=== PATIENT | female | born 1945 | race Caucasian/White ===

== ENCOUNTER 2017-07-06 10:54 | Emergency (ER) | payer MEDICARE ==
[~2017-07-06] VITALS: Ht 165.1 cm; Wt 83.2 kg
[~2017-07-06 10:54] MED LIST: CHERSOL PO; HYDR-2768 PO; KCL20 PO; LEVO.1 PO; PENI500T PO; ROSU5 PO
[2017-07-06 11:04] VITALS: BP 121/66; PULSE 100; RESP 16; TEMP 98.2; O2SAT 97
[2017-07-06] MEDS ORDERED: HYDR25TA5 PO (11:16)
[2017-07-06] MEDS ORDERED: ROSU5 PO (11:16)
[2017-07-06] MEDS ORDERED: LEVO88TA2 PO (11:16)
--- NOTE | 2017-07-06 11:30 | PD ---
HPI Chief Complaint: GI Complaint Time Seen by Provider: 11:13 Travel History International Travel<30 days: No Contact w/Intl Traveler<30days: No Traveled to known affect area: No History of Present Illness HPI 72yo F was sent in by Dr. Ortega for CT scan of abd/pelvis. Pt had colonoscopy 4 days ago and has been having lower abdominal pain since then. Said she does not feel much pain when she is just lying there but worst with movement. It was across lower abdomen but now more suprapubic. Has not had a bowel movement. +Flatus. Denies any fever, chest pain, sob, n/v, dysuria, hematuria, focal weakness or numbness. PFSH Past Medical History High Cholesterol: Yes Hypertension: Yes Immunizations Current: Yes Thyroid Disease: Yes Menopausal: Yes Past Surgical History Appendectomy: Yes Gynecologic Surgery: Yes Social History Alcohol Use: No Tobacco Use: No (E-CIGS) Substance Use: No Allergies-Medications (Allergen,Severity, Reaction): Coded Allergies: No Known Allergies (Unverified Adverse Reaction, Unknown, 07/06/17) Reported Meds & Prescriptions Reported Meds & Active Scripts Active Macrobid (Nitrofurantoin Monoh/Nitrofur Macro) 100 Mg Cap 100 Mg PO BID 5 Days Tylenol (Acetaminophen) 325 Mg Tab 325 Mg PO Q4H PRN Reported Crestor (Rosuvastatin Calcium) 5 Mg Tab 5 Mg PO EVERY OTHER DAY Hydrochlorothiazide 25 Mg Tab 25 Mg PO DAILY Levothyroxine (Levothyroxine Sodium) 88 Mcg Tab 88 Mcg PO DAILY Review of Systems Except as stated in HPI: all other systems reviewed are Neg Physical Exam Narrative GENERAL: 72yo F in mild distress. SKIN: Focused skin assessment warm/dry. HEAD: Atraumatic. Normocephalic. EYES: Pupils equal and round. No scleral icterus. No injection or drainage. CARDIOVASCULAR: Regular rate and rhythm. No murmur appreciated. RESPIRATORY: No accessory muscle use. Clear to auscultation. Breath sounds equal bilaterally. GASTROINTESTINAL: Abdomen soft, mild tenderness suprapubic region. No rebound tenderness or guarding. MUSCULOSKELETAL: No obvious deformities. No clubbing. No cyanosis. No edema. NEUROLOGICAL: Awake and alert. No obvious cranial nerve deficits. Motor grossly within normal limits. Normal speech. PSYCHIATRIC: Appropriate mood and affect; insight and judgment normal. Data Data Last Documented VS Vital Signs Date Time Temp Pulse Resp B/P (MAP) Pulse Ox O2 Delivery O2 Flow Rate FiO2 07/06/17 12:40 85 16 139/75 (96) 99 Room Air 07/06/17 11:04 98.2 Orders Orders Complete Blood Count With Diff (07/06/17 11:24) Comprehensive Metabolic Panel (07/06/17 11:24) Lipase (07/06/17 11:24) Prothrombin Time / Inr (Pt) (07/06/17 11:24) Act Partial Throm Time (Ptt) (07/06/17 11:24) Urinalysis - C+S If Indicated (07/06/17 11:24) Ct Abd/Pel W Iv Contrast(Rout) (07/06/17 11:24) Urine Culture (07/06/17 11:38) Potassium Chloride (Kcl) (07/06/17 12:30) Iohexol 350 Inj (Omnipaque 350 Inj) (07/06/17 12:29) Ed Discharge Order (07/06/17 13:06) Labs Laboratory Tests Test 07/06/17 11:35 07/06/17 11:38 White Blood Count 10.0 TH/MM3 Red Blood Count 4.58 MIL/MM3 Hemoglobin 12.8 GM/DL Hematocrit 38.8 % Mean Corpuscular Volume 84.7 FL Mean Corpuscular Hemoglobin 27.8 PG Mean Corpuscular Hemoglobin Concent 32.8 % Red Cell Distribution Width 12.6 % Platelet Count 347 TH/MM3 Mean Platelet Volume 8.8 FL Neutrophils (%) (Auto) 86.9 % Lymphocytes (%) (Auto) 7.6 % Monocytes (%) (Auto) 4.0 % Eosinophils (%) (Auto) 1.3 % Basophils (%) (Auto) 0.2 % Neutrophils # (Auto) 8.7 TH/MM3 Lymphocytes # (Auto) 0.8 TH/MM3 Monocytes # (Auto) 0.4 TH/MM3 Eosinophils # (Auto) 0.1 TH/MM3 Basophils # (Auto) 0.0 TH/MM3 CBC Comment DIFF FINAL Differential Comment Prothrombin Time 11.2 SEC Prothromb Time International Ratio 1.1 RATIO Activated Partial Thromboplast Time 30.5 SEC Blood Urea Nitrogen 15 MG/DL Creatinine 0.84 MG/DL Random Glucose 118 MG/DL Total Protein 7.0 GM/DL Albumin 2.7 GM/DL Calcium Level 9.2 MG/DL Alkaline Phosphatase 110 U/L Aspartate Amino Transf (AST/SGOT) 15 U/L Alanine Aminotransferase (ALT/SGPT) 20 U/L Total Bilirubin 0.5 MG/DL Sodium Level 136 MEQ/L Potassium Level 2.8 MEQ/L Chloride Level 95 MEQ/L Carbon Dioxide Level 31.9 MEQ/L Anion Gap 9 MEQ/L Estimat Glomerular Filtration Rate 67 ML/MIN Lipase 186 U/L Urine Collection Type CLEAN CATCH Urine Color YELLOW Urine Turbidity CLEAR Urine pH 7.0 Urine Specific [place] 1.020 Urine Protein TRACE mg/dL Urine Glucose (UA) NEG mg/dL Urine Ketones NEG mg/dL Urine Occult Blood LARGE Urine Nitrite NEG Urine Bilirubin NEG Urine Leukocyte Esterase TRACE Urine RBC 4-9 /hpf Urine WBC 3-5 /hpf Urine Squamous Epithelial Cells 6-8 /hpf Urine Bacteria MANY /hpf Urine Hyaline Casts 0-2 /lpf Urine Mucus MOD /lpf Urine Yeast (Budding) MOD Microscopic Urinalysis Comment CULTURE INDICATED MDM Medical Decision Making Medical Screen Exam Complete: Yes Emergency Medical Condition: Yes Differential Diagnosis Cystitis vs. colitis vs. perforation (low suspicion) Narrative Course 72yo F sent here by GI physician for CT scan after having persistent lower abdominal pain after colonoscopy 4 days ago. Pt is well appearing and abdominal exam is positive for mild tenderness in suprapubic region. No rebound tenderness or guarding. Labs reviewed, no leukocytosis. Hypokalemia at 2.8, replaced orally with 60mEq KCl. Lipase normal. UA showed trace leukocyte. +Squamous. Many urine bacteria. Moderate yeast. Culture indicated. Pt has no vaginal discharge or itching. No urinary complaints but suprapubic tenderness on exam. Although it may be contamination, will cover with antibiotics. CT a/p showed small amount of free fluid in presacral region. No evidence of intraperitoneal gas. Hiatus hernia containing a portion of the gastric fundus. Pt reevaluated at bedside and has no abdominal pain on exam. Pt is nontoxic appearing and tolerating PO. Discussed with Dr. Pruitt who is covering Dr. Ortega to inform him of the CT scan results. Return precautions given. Diagnosis Primary Impression: Abdominal pain Qualified Codes: R10.30 - Lower abdominal pain, unspecified Patient Instructions: General Instructions Departure Forms: Tests/Procedures Additional Instructions: Please follow up with Dr. Ortega or primary care physician as an outpatient. Return to the ED if symptoms worsen. Med/Other Pt SpecificInfo: Prescription(s) given Scripts Nitrofurantoin Monohydrate Macrocrystals (Macrobid) 100 Mg Cap 100 MG PO BID for Infection for 5 Days, #10 CAP 0 Refills Prov: Madeleine Cabello DO 07/06/17 Acetaminophen (Tylenol) 325 Mg Tab 325 MG PO Q4H Y for PAIN SCALE 1 TO 3, #15 TAB 0 Refills Prov: Madeleine Cabelol DO 07/06/17 Disposition: 01 DISCHARGE HOME Condition: Stable Madeleine Cabello DO Jul 06, 2017 11:30
[2017-07-06 11:45] LABS: BLOOD, URINE LARGE (NEG); GLUCOSE,URINE NEG (NEG); KETONE, URINE NEG (NEG); NITRITE,URINE NEG (NEG)
[2017-07-06 11:46] LABS: AUTOMATED NEUTROPHIL # 8.7 TH/MM3 (1.8-7.7); BASOPHIL % 0.2 % (0.0-2.0); EOSINOPHIL # 0.1 TH/MM3 (0-0.4); EOSINOPHIL % 1.3 % (0.0-4.0); HEMATOCRIT 38.8 % (35.0-46.0); HEMO FLAGS DIFF FINAL; LYMPH % 7.6 % (9.0-44.0); LYMPHOCYTE # 0.8 TH/MM3 (1.0-4.8); MEAN CELL VOLUME 84.7 FL (80.0-100.0); MEAN CORPUSCULAR HEMOGLOBIN 27.8 PG (27.0-34.0); MEAN CORPUSCULAR HGB CONC 32.8 % (32.0-36.0); NEUT % 86.9 % (16.0-70.0); PLATELET COUNT 347 TH/MM3 (150-450); RED BLOOD COUNT 4.58 MIL/MM3 (4.00-5.30); RED CELL DISTRIBUTION WIDTH 12.6 % (11.6-17.2)
[2017-07-06 11:54] LABS: HYALINE CAST, URINE 0-2 /lpf (RARE); METHOD OF COLLECTION CLEAN CATCH; URINE COLOR YELLOW (YELLW/STRAW)
[2017-07-06 11:55] LABS: BACTERIA, URINE MANY /hpf; COMMENT (UR) CULTURE INDICATED; CULTURE IF INDICATED CULTURE INDICATED
[2017-07-06 11:56] LABS: MUCUS URINE MOD /lpf (OCC)
[2017-07-06 12:00] LABS: APTT (PATIENT) 30.5 SEC (24.3-30.1); INTERNATIONAL NORMALIZED RATIO 1.1 RATIO; PROTHROMBIN TIME - PATIENT 11.2 SEC (9.8-11.6)
[2017-07-06 12:08] LABS: ALKALINE PHOSPHATASE 110 U/L (45-117); ALT (GPT) 20 U/L (10-53); ANION GAP 9 MEQ/L (5-15); AST (GOT) 15 U/L (15-37); BICARBONATE 31.9 MEQ/L (21.0-32.0); BLOOD UREA NITROGEN 15 MG/DL (7-18); CHLORIDE 95 MEQ/L (98-107); GLOMERULAR FILTRATION RATE 67 ML/MIN (>89); SODIUM (NA) 136 MEQ/L (136-145); TOTAL BILIRUBIN ADULT 0.5 MG/DL (0.2-1.0)
[2017-07-06 12:10] LABS: POTASSIUM 2.8 MEQ/L (3.5-5.1)
[2017-07-06] MEDS ORDERED: IOHEXOL 350 MG/ML 10 ML VIAL (for RAD DIAG) IVCONTRAST ONE (12:29)
[2017-07-06] MEDS ORDERED: POTASSIUM CHLORIDE 20 MEQ CONTROLLED RELEASE TAB PO ONE (12:30)
[2017-07-06 12:40] VITALS: BP 139/75; PULSE 85; RESP 16; O2SAT 99
--- NOTE | 2017-07-06 12:41 | RADRPT ---
EXAM DATE/TIME: 07/06/2017 12:23 [facility] COMPARISON: No previous studies available for comparison. INDICATIONS : Lower abdominal pain since colonscopy four days ago. IV CONTRAST: 95 cc Omnipaque 350 (iohexol) IV ORAL CONTRAST: No oral contrast ingested. RADIATION DOSE: 15.53 CTDIvol (mGy) MEDICAL HISTORY : Hypercholesterolemia. Hypertension. SURGICAL HISTORY : Appendectomy. ENCOUNTER: Initial ACUITY: 4 - 6 days PAIN SCALE: 7/10 LOCATION: Bilateral lower quadrant TECHNIQUE: Volumetric scanning of the abdomen and pelvis was performed. Using automated exposure control and ad justment of the mA and/or kV according to patient size, radiation dose was kept as low as reasonably achievable to obtain optimal diagnostic quality images. DICOM format image data is available electro nically for review and comparison. FINDINGS: LOWER LUNGS: The visualized lower lungs are clear. 4.8 cm hiatus hernia containing portion of the fundus of the st omach. LIVER: Homogeneous density without lesion. There is no dilation of the biliary tree. No calcified gallston es. SPLEEN: Normal size without lesion. PANCREAS: Within normal limits. KIDNEYS: Normal in size and shape. There is no mass, stone or hydronephrosis. ADRENAL GLANDS: Within normal limits. VASCULAR: There is no aortic aneurysm. BOWEL/MESENTERY: No dilated loops of small or large bowel. ABDOMINAL WALL: Fat-containing umbilical hernia. RETROPERITONEUM: There is no lymphadenopathy. There is some mild free fluid in the presacral region measuring up to 8 mm in size, best seen on image #72. No evidence of free intraperitoneal gas. BLADDER: No wall thickening or mass. REPRODUCTIVE: Within normal limits. INGUINAL: There is no lymphadenopathy or hernia. MUSCULOSKELETAL: Within normal limits for patient age. CONCLUSION: 1. Small amount of free fluid in the presacral region. 2. No evidence of free intraperitoneal gas. 3. Hiatus hernia containing a portion of the gastric fundus. Ac Almodovar MD on July 06, 2017 at 12:36 Board Certified Radiologist. This report was verified electronically.
[2017-07-06] MEDS ORDERED: TYLE325T PO (13:03)
[2017-07-06] MEDS ORDERED: MACR100C2 PO (13:03)
== END 2017-07-06 13:18 | disposition home or self-care (01) ==
LOC: PHED 10:54
DX: R10.30 Lower abdominal pain, unspecified (principal); E78.00 Pure hypercholesterolemia, unspecified; E07.9 Disorder of thyroid, unspecified
CPT/HCPCS: 74177; 80053; 81001; 83690; 85025; 85610; 85730; 87086; 99285; Q9967

== ENCOUNTER 2017-09-06 18:06 | Emergency (ER) | payer MEDICARE ==
[~2017-09-06] VITALS: Ht 165.1 cm; Wt 80.0 kg
[~2017-09-06 18:06] MED LIST changes: -CHERSOL PO; -HYDR-2768 PO; +HYDR25TA5 PO; -KCL20 PO; -LEVO.1 PO; +LEVO88TA2 PO; +MACR100C2 PO; -PENI500T PO; +TYLE325T PO
[2017-09-06 18:24] VITALS: BP 164/88; PULSE 106; RESP 16; TEMP 98.5; O2SAT 96
[2017-09-06] MEDS ORDERED: ASPI81CH6 CHEW (19:19)
[2017-09-06] MEDS ORDERED: SODIUM CHLORIDE 0.9% FLUSH 10 ML FLUSH IV FLUSH PRN (19:30)
[2017-09-06] MEDS ORDERED: FAMOTIDINE 20 MG/2 ML VIAL IV PUSH ONE (19:30)
--- NOTE | 2017-09-06 19:32 | PD ---
HPI Chief Complaint: GI Complaint Time Seen by Provider: 19:10 Travel History International Travel<30 days: No Contact w/Intl Traveler<30days: No Traveled to known affect area: No History of Present Illness HPI 72-year-old female complains of abdominal pain and black tarry stool. Patient states that she had colonoscopy done about 2 months ago. Patient states that she was told that she has diverticulosis and polyps and internal and external hemorrhoids. Patient states that she started having abdominal cramping discomfort intermittently since then. Patient patient states that she was seen in emergency room about 3 days after colonoscopy for abdominal pain. Patient states that she had blood tests and CT scan of the abdomen pelvis done at that time. Patient was advised to follow with her doctor. Patient states that she has not seen a physician since then. Patient states that she noticed black tarry stool 2 days last week. Patient states that she has been constipated recently. Patient take aspirin 81 mg daily. Patient denies any nausea vomiting diarrhea. Patient states that the abdominal pain has been intermittent and usually happens in the afternoon and evening. Patient denies any fever chills. Patient denies any back pain. Patient denies any recent weight loss. No family history of colon cancer. 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 [facility] Past Medical History High Cholesterol: Yes Hypertension: Yes Immunizations Current: Yes Thyroid Disease: Yes Menopausal: Yes Past Surgical History Appendectomy: Yes Gynecologic Surgery: Yes Social History Alcohol Use: No Tobacco Use: No (E-CIGS) Substance Use: No Allergies-Medications (Allergen,Severity, Reaction): Coded Allergies: No Known Allergies (Unverified Adverse Reaction, Unknown, 09/06/17) Reported Meds & Prescriptions Reported Meds & Active Scripts Active Reported Aspirin Low Dose (Aspirin) 81 Mg Chew 81 Mg CHEW DAILY Crestor (Rosuvastatin Calcium) 5 Mg Tab 5 Mg PO EVERY OTHER DAY Hydrochlorothiazide 25 Mg Tab 25 Mg PO DAILY Levothyroxine (Levothyroxine Sodium) 88 Mcg Tab 88 Mcg PO DAILY Review of Systems General / Constitutional: No: Fever Eyes: No: Visual changes HENT: No: Headaches Cardiovascular: No: Chest Pain or Discomfort Respiratory: No: Shortness of Breath Gastrointestinal: Positive: Abdominal Pain, Hematochezia, Constipation Genitourinary: No: Dysuria Musculoskeletal: No: Pain Skin: No Rash Neurologic: No: Weakness Psychiatric: No: Depression Endocrine: No: Polydipsia Hematologic/Lymphatic: No: Easy Bruising Physical Exam Narrative GENERAL: Well-nourished, well-developed patient. SKIN: Focused skin assessment warm/dry. HEAD: Normocephalic. EYES: No scleral icterus. No injection or drainage. NECK: Supple, trachea midline. No JVD or lymphadenopathy. CARDIOVASCULAR: Regular rate and rhythm without murmurs, gallops, or rubs. RESPIRATORY: Breath sounds equal bilaterally. No accessory muscle use. GASTROINTESTINAL: Abdomen soft, non-tender, nondistended. Rectal exam Hemoccult negative. MUSCULOSKELETAL: No cyanosis, or edema. BACK: Nontender without obvious deformity. No CVA tenderness. Neurologic exam normal. Data Data Last Documented VS Vital Signs Date Time Temp Pulse Resp B/P (MAP) Pulse Ox O2 Delivery O2 Flow Rate FiO2 09/06/17 20:35 86 16 177/80 (112) 99 Room Air 09/06/17 18:24 98.5 Orders Orders Complete Blood Count With Diff (09/06/17 19:23) Comprehensive Metabolic Panel (09/06/17 19:23) Lipase (09/06/17 19:23) Prothrombin Time / Inr (Pt) (09/06/17 19:23) Act Partial Throm Time (Ptt) (09/06/17 19:23) Urinalysis - C+S If Indicated (09/06/17 19:23) Ct Abd/Pel W Iv Contrast(Rout) (09/06/17 19:23) Iv Access Insert/Monitor (09/06/17 19:23) Ecg Monitoring (09/06/17 19:23) Oximetry (09/06/17 19:23) Sodium Chloride 0.9% Flush (Ns Flush) (09/06/17 19:30) Famotidine Inj (Pepcid Inj) (09/06/17 19:30) Urine Culture (09/06/17 19:35) Iohexol 350 Inj (Omnipaque 350 Inj) (09/06/17 20:25) Labs Laboratory Tests Test 09/06/17 19:30 09/06/17 19:35 White Blood Count 11.4 TH/MM3 Red Blood Count 4.56 MIL/MM3 Hemoglobin 12.6 GM/DL Hematocrit 38.0 % Mean Corpuscular Volume 83.3 FL Mean Corpuscular Hemoglobin 27.5 PG Mean Corpuscular Hemoglobin Concent 33.1 % Red Cell Distribution Width 13.4 % Platelet Count 331 TH/MM3 Mean Platelet Volume 8.6 FL Neutrophils (%) (Auto) 86.3 % Lymphocytes (%) (Auto) 7.2 % Monocytes (%) (Auto) 4.2 % Eosinophils (%) (Auto) 1.3 % Basophils (%) (Auto) 1.0 % Neutrophils # (Auto) 9.9 TH/MM3 Lymphocytes # (Auto) 0.8 TH/MM3 Monocytes # (Auto) 0.5 TH/MM3 Eosinophils # (Auto) 0.1 TH/MM3 Basophils # (Auto) 0.1 TH/MM3 CBC Comment DIFF FINAL Differential Comment Prothrombin Time 10.7 SEC Prothromb Time International Ratio 1.1 RATIO Activated Partial Thromboplast Time 28.0 SEC Blood Urea Nitrogen 18 MG/DL Creatinine 1.20 MG/DL Random Glucose 109 MG/DL Total Protein 7.4 GM/DL Albumin 3.0 GM/DL Calcium Level 9.5 MG/DL Alkaline Phosphatase 116 U/L Aspartate Amino Transf (AST/SGOT) 16 U/L Alanine Aminotransferase (ALT/SGPT) 18 U/L Total Bilirubin 0.3 MG/DL Sodium Level 133 MEQ/L Potassium Level 3.0 MEQ/L Chloride Level 93 MEQ/L Carbon Dioxide Level 32.6 MEQ/L Anion Gap 7 MEQ/L Estimat Glomerular Filtration Rate 44 ML/MIN Lipase 152 U/L Urine Color YELLOW Urine Turbidity CLEAR Urine pH 6.0 Urine Specific [place] 1.015 Urine Protein 100 mg/dL Urine Glucose (UA) NEG mg/dL Urine Ketones NEG mg/dL Urine Occult Blood MOD Urine Nitrite NEG Urine Bilirubin NEG Urine Leukocyte Esterase SMALL Urine RBC 0-3 /hpf Urine WBC 15-19 /hpf Urine WBC Clumps FEW Urine Squamous Epithelial Cells 0-5 /hpf Urine Amorphous Sediment FEW Urine Bacteria FEW /hpf Microscopic Urinalysis Comment CULTURE INDICATED MDM Medical Decision Making Medical Screen Exam Complete: Yes Emergency Medical Condition: Yes Interpretation(s) Last Impressions Abdomen/Pelvis CT 09/06/[id number] Signed Impressions: Service Date/Time: Wednesday, September 06, 2017 20:13 - CONCLUSION: 1. Moderate hiatal hernia the GE junction. Unchanged compared to the prior study. 2. A few small benign right renal cyst. 3. No acute pathology. No new or significant changes compared to the prior study. John Briggs MD 21:14 PM. CBC WBC 11.4. Hemoglobin 12.6 hematocrit 30.0. 86 neutrophil. Sodium 133. Potassium 3.0. Chloride 93. Bicarbonate 32.6. Creatinine 1.20. GFR 44. UA positive WBC and bacteria. Differential Diagnosis Differential diagnosis including gastritis, PUD, pancreatitis, cholecystitis, colitis, UTI, pyelonephritis, nephrolithiasis, GI bleed. Narrative Course 72-year-old female with intermittent abdominal cramping and history of black tarry stool for 2 days last week. Bactrim DS, one tablet by mouth given. KCl 40 mEq by mouth given. Diagnosis Primary Impression: Abdominal pain Qualified Codes: R10.9 - Unspecified abdominal pain Additional Impressions: Hypokalemia UTI (urinary tract infection) Qualified Codes: N30.00 - Acute cystitis without hematuria Patient Instructions: General Instructions Additional Instructions: Take medications as directed. Follow-up with shop router. Return if worse. Follow-up with personal physician. Med/Other Pt SpecificInfo: Prescription(s) given Scripts Potassium Chloride ER (Potassium Chloride ER) 10 Meq Cap 10 MEQ PO DAILY for Electrolyte Replacement, #7 CAP 0 Refills Prov: Faizan Gregory MD 09/06/17 Pantoprazole (Protonix) 40 Mg Tab 40 MG PO DAILY for Reflux, #30 TAB 0 Refills Prov: Faizan Gregory MD 09/06/17 Sulfamethoxazole-Trimethoprim (Bactrim DS) 800-160 Mg Tab 1 TAB PO BID for Infection, #14 TAB 0 Refills Prov: Faizan Gregory MD 09/06/17 Disposition: 01 DISCHARGE HOME Condition: Stable Faizan Gregory MD Sep 06, 2017 19:32
[2017-09-06 19:43] LABS: AUTOMATED NEUTROPHIL # 9.9 TH/MM3 (1.8-7.7); BASOPHIL # 0.1 TH/MM3 (0-0.2); EOSINOPHIL # 0.1 TH/MM3 (0-0.4); EOSINOPHIL % 1.3 % (0.0-4.0); HEMOGLOBIN 12.6 GM/DL (11.6-15.3); LYMPH % 7.2 % (9.0-44.0); LYMPHOCYTE # 0.8 TH/MM3 (1.0-4.8); MEAN CELL VOLUME 83.3 FL (80.0-100.0); MEAN CORPUSCULAR HEMOGLOBIN 27.5 PG (27.0-34.0); MEAN CORPUSCULAR HGB CONC 33.1 % (32.0-36.0); MEAN PLATELET VOLUME 8.6 FL (7.0-11.0); MONO % 4.2 % (0.0-8.0); MONOCYTE # 0.5 TH/MM3 (0-0.9); NEUT % 86.3 % (16.0-70.0); PLATELET COUNT 331 TH/MM3 (150-450); RED BLOOD COUNT 4.56 MIL/MM3 (4.00-5.30); RED CELL DISTRIBUTION WIDTH 13.4 % (11.6-17.2); WHITE BLOOD COUNT 11.4 TH/MM3 (4.0-11.0)
[2017-09-06 19:44] LABS: BILIRUBIN, URINE NEG (NEG); BLOOD, URINE MOD (NEG); GLUCOSE,URINE NEG (NEG); KETONE, URINE NEG (NEG); NITRITE,URINE NEG (NEG); URINE LEUKOCYTE ESTERASE SMALL (NEG)
[2017-09-06 19:48] LABS: URINE COLOR YELLOW (YELLW/STRAW)
[2017-09-06 19:50] LABS: AMORPHOUS SEDIMENT, URINE FEW; BACTERIA, URINE FEW /hpf; RBC, URINE 0-3 /hpf (0-3); SQUAMOUS EPITHELIAL CELL URINE 0-5 /hpf (0-5); WBC, URINE 15-19 /hpf (0-5); WHITE BLOOD CELL CLUMPS FEW
[2017-09-06 19:52] LABS: CHLORIDE 93 MEQ/L (98-107); SODIUM (NA) 133 MEQ/L (136-145)
[2017-09-06 19:55] LABS: CALCIUM 9.5 MG/DL (8.5-10.1)
[2017-09-06 19:56] LABS: BICARBONATE 32.6 MEQ/L (21.0-32.0); BLOOD UREA NITROGEN 18 MG/DL (7-18); GLUCOSE,RANDOM 109 MG/DL (74-106)
[2017-09-06 19:58] LABS: ALT (GPT) 18 U/L (10-53); AST (GOT) 16 U/L (15-37)
[2017-09-06 19:59] LABS: GLOMERULAR FILTRATION RATE 44 ML/MIN (>89); INTERNATIONAL NORMALIZED RATIO 1.1 RATIO; PROTHROMBIN TIME - PATIENT 10.7 SEC (9.8-11.6)
[2017-09-06 20:00] LABS: TOTAL BILIRUBIN ADULT 0.3 MG/DL (0.2-1.0); TOTAL PROTEIN 7.4 GM/DL (6.4-8.2)
[2017-09-06 20:01] LABS: ALKALINE PHOSPHATASE 116 U/L (45-117)
[2017-09-06] MEDS ORDERED: IOHEXOL 350 MG/ML 10 ML VIAL (for RAD DIAG) IVCONTRAST ONE (20:25)
--- NOTE | 2017-09-06 20:32 | RADRPT ---
EXAM DATE/TIME: 09/06/2017 20:13 [facility] COMPARISON: CT ABDOMEN & PELVIS W CONTRAST, July 06, 2017, 12:23. INDICATIONS : Lower abdominal pain. Black stools. IV CONTRAST: 75 cc Omnipaque 350 (iohexol) IV ORAL CONTRAST: No oral contrast ingested. RADIATION DOSE: 15.20 CTDIvol (mGy) MEDICAL HISTORY : Hypertension. Diverticulosis. SURGICAL HISTORY : Appendectomy. ENCOUNTER: Initial ACUITY: 1 week PAIN SCALE: 2/10 LOCATION: Bilateral lower quadrant TECHNIQUE: Volumetric scanning of the abdomen and pelvis was performed. Using automated exposure control and ad justment of the mA and/or kV according to patient size, radiation dose was kept as low as reasonably achievable to obtain optimal diagnostic quality images. DICOM format image data is available electro nically for review and comparison. FINDINGS: LOWER LUNGS: The visualized lower lungs are clear. Moderate hiatal hernia the GE junction. LIVER: Homogeneous density without lesion. There is no dilation of the biliary tree. No calcified gallston es. SPLEEN: Normal size without lesion. PANCREAS: Within normal limits. KIDNEYS: Normal in size and shape. There is no mass, stone or hydronephrosis. There is an 8mm and 1 cm cyst a long the mid to lower pole the right kidney. No significant changes. ADRENAL GLANDS: Within normal limits. VASCULAR: There is no aortic aneurysm. BOWEL/MESENTERY: The stomach, small bowel, and colon demonstrate no acute abnormality. There is no free intraperitone al air or fluid. No inflammatory changes. There is a drop colon. ABDOMINAL WALL: Within normal limits. RETROPERITONEUM: There is no lymphadenopathy. BLADDER: No wall thickening or mass. REPRODUCTIVE: Within normal limits. INGUINAL: There is no lymphadenopathy or hernia. MUSCULOSKELETAL: Within normal limits for patient age. Stable exam compared to the prior study. CONCLUSION: 1. Moderate hiatal hernia the GE junction. Unchanged compared to the prior study. 2. A few small benign right renal cyst. 3. No acute pathology. No new or significant changes compared to the prior study. John Briggs MD on September 06, 2017 at 20:27 Board Certified Radiologist. This report was verified electronically.
[2017-09-06 20:35] VITALS: BP 177/80; PULSE 86; RESP 16; O2SAT 99
[2017-09-06] MEDS ORDERED: BACT800T5 PO (21:19)
[2017-09-06] MEDS ORDERED: POTA10CA PO (21:19)
[2017-09-06] MEDS ORDERED: PROT40TA PO (21:19)
[2017-09-06] MEDS ORDERED: POTASSIUM CHLORIDE 20 MEQ CONTROLLED RELEASE TAB PO ONE (21:30)
[2017-09-06] MEDS ORDERED: SULFAMETHOXAZOLE-TRIMETHOPRIM DS 800-160 MG TAB PO ONE (21:30)
== END 2017-09-06 21:45 | disposition home or self-care (01) ==
LOC: PHED 18:06
DX: R10.9 Unspecified abdominal pain (principal); E87.6 Hypokalemia; N30.00 Acute cystitis without hematuria; B95.2 Enterococcus as the cause of diseases classified elsewhere; I10 Essential (primary) hypertension; E78.00 Pure hypercholesterolemia, unspecified; Z79.82 Long term (current) use of aspirin
CPT/HCPCS: 74177; 80053; 81001; 83690; 85025; 85610; 85730; 87077; 87086; 87186; 96374; 99284; Q9967